=== PATIENT | female | born 1950 | race Caucasian/White ===

== ENCOUNTER → 2019-03-27 08:16 | Outpatient (CLI) | payer MEDICARE ==
[2016-06-28 11:57] VITALS: BMI 28.4
[~2019-03-27 08:16] MED LIST: ELIQUIS2.5 MG PO; LOZOL1.25 MG PO; MULTI-DAY VITAM1 TAB PO; NORVASC2.5 MG PO; PERCOCET 10/3251 TA1 PO; SYNTHROID50 MCG PO; VITAMIN D31000 UNIT PO
== END | disposition home or self-care (01) ==
LOC: D.MRI 08:16
PROVIDERS: ATTEND Clinical Nurse Specialist Family Health
DX: M54.5 Low back pain (principal)